=== PATIENT | female | born 1960 | race Caucasian/White ===

== ENCOUNTER → 2021-03-09 | Outpatient (CLI) | payer OTHER ==
--- NOTE | 2021-03-09 10:27 | RAD ---
EXAM: ULTRASOUND ABDOMEN LIMITED CLINICAL HISTORY: Elevated liver function tests COMPARISON: None available. TECHNIQUE: Limited ultrasound examination of the right upper quadrant of the abdomen was performed. FINDINGS: The visualized IVC, aorta within normal limits of dimension. The liver length measures 21.2 cm. No ev idence of gallstones. The gallbladder wall thickness measures 1.5 mm in thickness. The common bile du ct measures 5.4 mm in transverse dimension. The pancreas is not well-visualized due to bowel gas. The right kidney measures 10.5 x 4.8 x 4.1 cm. IMPRESSION: 1. Hepatomegaly. Electronically signed by: Adams Osuna MD (03/09/2021 10:25 AM) [id number]
== END ==
LOC: US 08:44
PROVIDERS: ATTEND Family Medicine
DX: R16.0 Hepatomegaly, not elsewhere classified (principal); R74.8 Abnormal levels of other serum enzymes
CPT/HCPCS: 76705